=== PATIENT | female | born 1935 | race Hispanic/Latino ===

== ENCOUNTER 2022-05-19 17:28 | Inpatient (IN) | payer MEDICARE, OTHER ==
[~2022-05-19] VITALS: Ht 144.8 cm; Wt 46.8 kg
[~2022-05-19 17:28] MED LIST: DEXAMETHASONE SOD PHOS INJ 4 MG/ML SDV ONE; DEXMEDETOMIDINE HCL 200 MCG/2 ML VIAL ONE; EPHEDRINE SULFATE INJ 50 MG/ML VIAL ONE; ETOMIDATE 2 MG/ML 10 ML INJ IV ONE; GLYCOPYRROLATE INJ 0.2 MG/ML VIAL ONE; KETOROLAC TROMETHAMINE 30 MG/ML VIAL ONE; LIDOCAINE HCL 2% LOCAL INJ 5 ML SDV VIAL INJ ONE; NEOSTIGMINE 1 MG/ML 10ML VIAL ONE; ONDANSETRON HCL INJ 2MG/ML 2ML 2 MG/ML VIAL ONE; POVIDONE IODINE 0.05% 0.05 % ML PO ONE; PROPOFOL IV EMULSION 10 MG/ML 20 ML VIAL ONE; ROCURONIUM BROMIDE 10 MG/ML 5ML VIAL IV ONE; SEVOFLURANE INHAL SOLN 250 ML PEN BTL ONE; SUCCINYLCHOLINE CHLORIDE 20 MG/ML 10ML VIAL ONE
[2022-05-19] MEDS ORDERED: PROPOFOL IV EMULSION 10 MG/ML 20 ML VIAL IV STA (18:25)
[2022-05-19] MEDS ORDERED: KETAMINE HCL INJ 50 MG/ML 10 ML VIAL IV ONE (18:30)
[2022-05-19] MEDS: SODIUM CHLORIDE 0.9% 1000ML 1,000 ML IV SCH (20:01)
[2022-05-19 20:03] LABS: BASOPHILS % 0.2 % (0.0-1.0); HEMATOCRIT 39.8 % (34.2-44.1); HEMOGLOBIN 12.1 g/dL (12.0-16.0); LYMPHOCYTES # (AUTO) 0.6 (1.0-3.2); LYMPHOCYTES % 3.3 % (18.0-39.1); MEAN CORPUSCULAR HEMOGLOBIN 28.9 pg (28-32); MEAN CORPUSCULAR HGB CONC 30.4 g/dL (31-35); MEAN CORPUSCULAR VOLUME 95.2 fL (81-99); MONOCYTES # (AUTO) 0.9 (0.2-0.8); MONOCYTES % 5.3 % (4.4-11.3); NEUTROPHILS % 90.2 % (38.7-80.0); PLATELET COUNT 187 x10e3/uL (140-360); RED BLOOD COUNT 4.18 x10e6/uL (3.6-5.1); RED CELL DISTRIBUTION WIDTH 14.6 % (11.7-14.4)
[2022-05-19] MEDS ORDERED: HYDRALAZINE HCL 20 MG/ML VIAL IV PRN (20:15)
[2022-05-19 20:21] LABS: ALBUMIN 3.7 g/dL (3.5-5.0); ANION GAP 17.3 mmol/L (8-16); CALCIUM 8.6 mg/dL (8.4-10.2); CREATININE, SERUM 0.99 mg/dL (0.57-1.11); POTASSIUM 4.3 mmol/L (3.5-5.1)
[2022-05-19 20:32] LABS: CREATINE KINASE MB 2.6 ng/mL (0-5.0)
[2022-05-19] MEDS: HYDRALAZINE HCL 20 MG/ML VIAL IV PRN (20:34)
[2022-05-19 20:48] LABS: INR 0.96
[2022-05-19 20:49] LABS: PARTIAL THROMBOPLASTIN TIME 26.5 seconds (23.8-35.5)
[2022-05-19 21:40] VITALS: BP 117/59
[2022-05-19] MEDS: ONDANSETRON HCL INJ 2MG/ML 2ML 2 MG/ML VIAL IV PRN (22:42)
[2022-05-19] MEDS: Morphine 4mg INJECTION 4 MG/ML INJ IV PRN (22:42)
[2022-05-20] VITALS (10 sets, daily range): BP systolic 115–173; BP diastolic 55–90
[2022-05-20] MEDS: SODIUM CHLORIDE 0.9% 1000ML 1,000 ML IV SCH ×2 (03:30→13:46)
[2022-05-20 04:41] LABS: CREATINE KINASE MB 4.5 ng/mL (0-5.0)
[2022-05-20 05:54] LABS: BASOPHILS % 0.5 % (0.0-1.0); HEMATOCRIT 32.9 % (34.2-44.1); HEMOGLOBIN 10.5 g/dL (12.0-16.0); LYMPHOCYTES # (AUTO) 1.1 (1.0-3.2); LYMPHOCYTES % 12.3 % (18.0-39.1); MEAN CORPUSCULAR HEMOGLOBIN 28.8 pg (28-32); MEAN CORPUSCULAR HGB CONC 31.9 g/dL (31-35); MEAN CORPUSCULAR VOLUME 90.4 fL (81-99); MONOCYTES # (AUTO) 0.8 (0.2-0.8); MONOCYTES % 9.4 % (4.4-11.3); NEUTROPHILS # (AUTO) 6.8 (2.1-6.9); NEUTROPHILS % 77.2 % (38.7-80.0); PLATELET COUNT 166 x10e3/uL (140-360); RED BLOOD COUNT 3.64 x10e6/uL (3.6-5.1); RED CELL DISTRIBUTION WIDTH 14.8 % (11.7-14.4)
[2022-05-20 06:22] LABS: ALBUMIN 3.1 g/dL (3.5-5.0); ALBUMIN/GLOBULIN RATIO 0.9 (0.8-2.0); ANION GAP 14.4 mmol/L (8-16); CALCIUM 8.1 mg/dL (8.4-10.2); CREATININE, SERUM 0.86 mg/dL (0.57-1.11); POTASSIUM 4.4 mmol/L (3.5-5.1)
[2022-05-20] MEDS: ONDANSETRON HCL INJ 2MG/ML 2ML 2 MG/ML VIAL IV PRN ×2 (07:43→11:52)
[2022-05-20] MEDS: Morphine 4mg INJECTION 4 MG/ML INJ IV PRN ×2 (07:43→11:52)
[2022-05-20] MEDS ORDERED: Vancomycin IV 1 GM VIAL ONE (11:14)
[2022-05-20] MEDS ORDERED: TRANEXAMIC ACID 20 ML ONE (11:14)
[2022-05-20 11:54] LABS: CREATINE KINASE MB 3.5 ng/mL (0-5.0)
[2022-05-20] MEDS ORDERED: DEXAMETHASONE 4 MG TAB PO SCH (12:15)
[2022-05-20] MEDS ORDERED: REMDESIVIR 200MG 200 MG in SODIUM CHLORIDE 0.9% 100 ML IV ONE (13:00)
[2022-05-20] MEDS ORDERED: DEXMEDETOMIDINE HCL 2 ML ONE (15:56)
[2022-05-20] MEDS ORDERED: ROPIVACAINE 0.5% 5 MG/ML 30 ML SDV ONE (15:57)
[2022-05-20] MEDS ORDERED: FENTANYL CITRATE/PF 100MCG/2 ML INJ ONE (18:50)
[2022-05-20] MEDS ORDERED: HYDROCODONE/APAP 5MG-325MG TAB PO PRN (19:00)
[2022-05-20] MEDS: Vancomycin IV 1 GM in SODIUM CHLORIDE 0.9% 250ML 250 ML IV SCH (19:00)
[2022-05-20] MEDS ORDERED: DOCUSATE SODIUM 100 MG CAP PO PRN (19:00)
[2022-05-20] MEDS ORDERED: Morphine 4mg INJECTION 4 MG/ML INJ ONE (19:22)
[2022-05-20] MEDS: HEPARIN SOD (PORCINE) 5,000 UNIT/ML VIAL SC SCH (21:37)
[2022-05-21] VITALS (28 sets, daily range): BP systolic 67–186; BP diastolic 39–87
[2022-05-21] MEDS: Morphine 4mg INJECTION 4 MG/ML INJ IV PRN ×3 (00:18→10:47)
[2022-05-21] MEDS: ACETAMINOPHEN 1000 MG/100 ML IV SCH ×4 (00:19→17:51)
[2022-05-21] MEDS: SODIUM CHLORIDE 0.9% 1000ML 1,000 ML IV SCH ×4 (00:21→19:34)
[2022-05-21 05:55] LABS: BASOPHILS % 0.1 % (0.0-1.0); HEMATOCRIT 31.1 % (34.2-44.1); HEMOGLOBIN 9.1 g/dL (12.0-16.0); LYMPHOCYTES # (AUTO) 0.7 (1.0-3.2); LYMPHOCYTES % 6.6 % (18.0-39.1); MEAN CORPUSCULAR HEMOGLOBIN 28.6 pg (28-32); MEAN CORPUSCULAR HGB CONC 29.3 g/dL (31-35); MEAN CORPUSCULAR VOLUME 97.8 fL (81-99); MONOCYTES # (AUTO) 0.8 (0.2-0.8); MONOCYTES % 7.6 % (4.4-11.3); NEUTROPHILS # (AUTO) 8.6 (2.1-6.9); NEUTROPHILS % 85.3 % (38.7-80.0); PLATELET COUNT 181 x10e3/uL (140-360); RED BLOOD COUNT 3.18 x10e6/uL (3.6-5.1); RED CELL DISTRIBUTION WIDTH 14.9 % (11.7-14.4)
[2022-05-21 06:24] LABS: ANION GAP 17.3 mmol/L (8-16); CALCIUM 7.7 mg/dL (8.4-10.2); CREATININE, SERUM 1.08 mg/dL (0.57-1.11); POTASSIUM 4.3 mmol/L (3.5-5.1)
[2022-05-21] MEDS: Vancomycin IV 1 GM in SODIUM CHLORIDE 0.9% 250ML 250 ML IV SCH (08:11)
[2022-05-21] MEDS: ASPIRIN 81 MG ENTERIC COATED PO SCH ×2 (08:12→17:47)
[2022-05-21] MEDS: HYDRALAZINE HCL 20 MG/ML VIAL IV PRN (08:25)
[2022-05-21] MEDS: HEPARIN SOD (PORCINE) 5,000 UNIT/ML VIAL SC SCH ×3 (08:32→21:06)
[2022-05-21] MEDS ORDERED: ASPIRIN 325 MG TAB PO SCH (09:00)
[2022-05-21] MEDS ORDERED: CELECOXIB 100 MG CAP PO SCH (09:00)
[2022-05-21] MEDS: ONDANSETRON HCL INJ 2MG/ML 2ML 2 MG/ML VIAL IV PRN (10:46)
[2022-05-21] MEDS ORDERED: LISINOPRIL 2.5 MG TAB PO SCH (11:30)
[2022-05-21] MEDS ORDERED: REMDESIVIR 100MG 100 MG in SODIUM CHLORIDE 0.9% 100 ML IV SCH (14:00)
[2022-05-21] MEDS ORDERED: CELECOXIB 200 MG CAP PO SCH (17:00)
[2022-05-21] MEDS ORDERED: MIDAZOLAM HCL 2 MG/2 ML VIAL IV PRN (20:15)
[2022-05-21] MEDS: LACTATED RINGER'S 1,000 ML INJ SCH (20:35)
[2022-05-21] MEDS: DEXMEDETOMIDINE 400MCG/NS100ML 100 ML IV PRN (20:36)
[2022-05-21 20:38] LABS: ABG HCO3 21 mmol/L (22-26); ABG PCO2 41 mmHg (35-45); ABG PH 7.32 (7.35-7.45); ABG PO2 69 mmHg (80-105); ABG TCO2 22
[2022-05-21 21:28] LABS: CLARITY,URINE CLOUDY (CLEAR); COLOR,URINE YELLOW (YELLOW); LEUKOCYTE ESTERASE ,URINE SMALL (NEGATIVE)
[2022-05-21 21:29] LABS: KETONES,URINE NEGATIVE (NEGATIVE); NITRITE,URINE NEGATIVE (NEGATIVE); PROTEIN,URINE DIPSTICK 1+ (NEGATIVE); URINE UROBILINOGEN 0.2 mg/dL (0.2 - 1)
[2022-05-21 21:38] LABS: BACTERIA,URINE MODERATE /HPF; RENAL EPITHELIAL CELLS,URINE RARE; WBC,URINE (MAN) >50 /HPF (0-5)
[2022-05-21] MEDS ORDERED: NOREPINEPHRINE 8 MG/D5W 250 ML 250 ML IV PRN (21:45)
[2022-05-21] MEDS ORDERED: Morphine 4mg INJECTION 4 MG/ML INJ IV PRN (23:30)
[2022-05-22] VITALS (43 sets, daily range): BP systolic 91–160; BP diastolic 53–96
[2022-05-22] MEDS: LACTATED RINGER'S 1,000 ML INJ SCH ×2 (04:52→15:35)
[2022-05-22] MEDS: DEXMEDETOMIDINE 400MCG/NS100ML 100 ML IV PRN (04:53)
[2022-05-22 06:38] LABS: BASOPHILS % 0.7 % (0.0-1.0); EOSINOPHILS % 1.4 % (0.0-6.0); HEMATOCRIT 25.3 % (34.2-44.1); HEMOGLOBIN 7.8 g/dL (12.0-16.0); LYMPHOCYTES # (AUTO) 0.6 (1.0-3.2); LYMPHOCYTES % 18.7 % (18.0-39.1); MEAN CORPUSCULAR HEMOGLOBIN 28.9 pg (28-32); MEAN CORPUSCULAR HGB CONC 30.8 g/dL (31-35); MEAN CORPUSCULAR VOLUME 93.7 fL (81-99); MONOCYTES # (AUTO) 0.1 (0.2-0.8); MONOCYTES % 3.4 % (4.4-11.3); NEUTROPHILS # (AUTO) 2.2 (2.1-6.9); NEUTROPHILS % 75.5 % (38.7-80.0); PLATELET COUNT 143 x10e3/uL (140-360); RED CELL DISTRIBUTION WIDTH 14.6 % (11.7-14.4)
[2022-05-22 07:09] LABS: ALBUMIN 2.1 g/dL (3.5-5.0); ALBUMIN/GLOBULIN RATIO 0.8 (0.8-2.0); ANION GAP 11.7 mmol/L (8-16); CALCIUM 7.1 mg/dL (8.4-10.2); CREATININE, SERUM 0.8 mg/dL (0.57-1.11); POTASSIUM 3.7 mmol/L (3.5-5.1)
[2022-05-22 08:28] LABS: BAND NEUTROPHILS % (MANUAL) 5 %; EOSINOPHILS % (MANUAL) 1 % (0-7); LYMPHOCYTES % (MANUAL) 25 % (19-48); MONOCYTES % (MANUAL) 7 % (3.4-9.0); NEUTROPHILS % (MANUAL) 62 % (40-74); PLATELET ESTIMATE SLIGHTLY DECREASED; PLATELET MORPHOLOGY COMMENT NORMAL; RBC MORPHOLOGY COMMENT NORMAL
[2022-05-22] MEDS: ASPIRIN 81 MG ENTERIC COATED PO SCH ×2 (09:00→16:14)
[2022-05-22] MEDS: HEPARIN SOD (PORCINE) 5,000 UNIT/ML VIAL SC SCH ×2 (09:07→20:58)
[2022-05-22] MEDS ORDERED: ACETAMINOPHEN 1000 MG/100 ML IV PRN (19:45)
[2022-05-23] VITALS (43 sets, daily range): BP systolic 101–185; BP diastolic 45–113
[2022-05-23] MEDS: LACTATED RINGER'S 1,000 ML INJ SCH (02:20)
[2022-05-23 06:30] LABS: BASOPHILS % 0.1 % (0.0-1.0); EOSINOPHILS % 0.4 % (0.0-6.0); HEMOGLOBIN 6.7 g/dL (12.0-16.0); LYMPHOCYTES # (AUTO) 0.8 (1.0-3.2); LYMPHOCYTES % 9.4 % (18.0-39.1); MEAN CORPUSCULAR HEMOGLOBIN 28.6 pg (28-32); MEAN CORPUSCULAR HGB CONC 30.3 g/dL (31-35); MEAN CORPUSCULAR VOLUME 94.4 fL (81-99); MONOCYTES # (AUTO) 0.4 (0.2-0.8); MONOCYTES % 4.7 % (4.4-11.3); NEUTROPHILS # (AUTO) 6.9 (2.1-6.9); NEUTROPHILS % 83.9 % (38.7-80.0); PLATELET COUNT 152 x10e3/uL (140-360); RED BLOOD COUNT 2.34 x10e6/uL (3.6-5.1); RED CELL DISTRIBUTION WIDTH 15.1 % (11.7-14.4)
[2022-05-23 06:38] LABS: HEMATOCRIT 22.1 % (34.2-44.1)
[2022-05-23 07:00] LABS: ALBUMIN 1.9 g/dL (3.5-5.0); ALBUMIN/GLOBULIN RATIO 0.6 (0.8-2.0); ANION GAP 14.7 mmol/L (8-16); CALCIUM 7.5 mg/dL (8.4-10.2); CREATININE, SERUM 0.71 mg/dL (0.57-1.11); POTASSIUM 3.7 mmol/L (3.5-5.1)
[2022-05-23] MEDS ORDERED: POTASSIUM CHLORIDE 20MEQ/100ML 200 ML IV ONE (08:00)
[2022-05-23] MEDS: DEXMEDETOMIDINE 400MCG/NS100ML 100 ML IV PRN (08:03)
[2022-05-23] MEDS: ASPIRIN 81 MG ENTERIC COATED PO SCH (08:14)
[2022-05-23] MEDS ORDERED: SODIUM CHLORIDE 0.9% 250ML 250 ML IV ONE (08:15)
[2022-05-23] MEDS: HEPARIN SOD (PORCINE) 5,000 UNIT/ML VIAL SC SCH ×2 (08:15→21:18)
[2022-05-23 09:03] LABS: FERRITIN 103.83 ng/mL (4.63-204.00)
[2022-05-23 09:05] LABS: ABG HCO3 20 mmol/L (22-26); ABG PCO2 34 mmHg (35-45); ABG PH 7.39 (7.35-7.45); ABG PO2 108 mmHg (80-105); ABG TCO2 21
[2022-05-23] MEDS: SODIUM BICARBONATE 8.4% 50 ML in SODIUM CHLORIDE 0.45% 1,000 ML IV SCH ×2 (10:15→21:18)
[2022-05-23 11:52] LABS: BAND NEUTROPHILS % (MANUAL) 8 %; LYMPHOCYTES % (MANUAL) 11 % (19-48); MONOCYTES % (MANUAL) 2 % (3.4-9.0); NEUTROPHILS % (MANUAL) 79 % (40-74)
[2022-05-23 11:54] LABS: PLATELET ESTIMATE ADEQUATE; PLATELET MORPHOLOGY COMMENT NORMAL; RBC MORPHOLOGY COMMENT NORMAL
[2022-05-23] MEDS: HYDRALAZINE HCL 20 MG/ML VIAL IV PRN (13:26)
[2022-05-23 17:24] LABS: HEMATOCRIT 24.4 % (34.2-44.1); HEMOGLOBIN 7.6 g/dL (12.0-16.0)
[2022-05-24] VITALS (15 sets, daily range): BP systolic 107–175; BP diastolic 44–110
[2022-05-24 06:56] LABS: BASOPHILS % 0.2 % (0.0-1.0); EOSINOPHILS % 0.1 % (0.0-6.0); HEMATOCRIT 30.7 % (34.2-44.1); HEMOGLOBIN 9.4 g/dL (12.0-16.0); LYMPHOCYTES # (AUTO) 0.7 (1.0-3.2); LYMPHOCYTES % 5.8 % (18.0-39.1); MEAN CORPUSCULAR HEMOGLOBIN 29.2 pg (28-32); MEAN CORPUSCULAR HGB CONC 30.6 g/dL (31-35); MEAN CORPUSCULAR VOLUME 95.3 fL (81-99); MONOCYTES # (AUTO) 0.4 (0.2-0.8); MONOCYTES % 3.8 % (4.4-11.3); NEUTROPHILS # (AUTO) 10.3 (2.1-6.9); NEUTROPHILS % 89.6 % (38.7-80.0); PLATELET COUNT 159 x10e3/uL (140-360); RED BLOOD COUNT 3.22 x10e6/uL (3.6-5.1); RED CELL DISTRIBUTION WIDTH 14.9 % (11.7-14.4)
[2022-05-24 07:23] LABS: ALBUMIN 1.7 g/dL (3.5-5.0); ALBUMIN/GLOBULIN RATIO 0.5 (0.8-2.0); CALCIUM 7.3 mg/dL (8.4-10.2); CREATININE, SERUM 0.71 mg/dL (0.57-1.11)
[2022-05-24 07:49] LABS: BAND NEUTROPHILS % (MANUAL) 1 %; LYMPHOCYTES % (MANUAL) 3 % (19-48); MONOCYTES % (MANUAL) 3 % (3.4-9.0); NEUTROPHILS % (MANUAL) 93 % (40-74)
[2022-05-24 07:50] LABS: HYPOCHROMASIA SLIGHT; RBC MORPHOLOGY COMMENT NORMAL
[2022-05-24 07:51] LABS: PLATELET ESTIMATE ADEQUATE; PLATELET MORPHOLOGY COMMENT NORMAL
[2022-05-24] MEDS: HEPARIN SOD (PORCINE) 5,000 UNIT/ML VIAL SC SCH ×2 (08:35→20:37)
[2022-05-24] MEDS: METRONIDAZOLE 500MG/NS 100ML 100 ML IV SCH ×3 (10:35→21:20)
[2022-05-24] MEDS: SODIUM BICARBONATE 8.4% 50 ML in SODIUM CHLORIDE 0.45% 1,000 ML IV SCH (11:31)
[2022-05-24] MEDS: HYDRALAZINE HCL 20 MG/ML VIAL IV PRN ×2 (18:06→18:13)
[2022-05-24] MEDS: DEXMEDETOMIDINE 400MCG/NS100ML 100 ML IV PRN (20:14)
[2022-05-25] VITALS (20 sets, daily range): BP systolic 111–165; BP diastolic 41–68
[2022-05-25] MEDS: SODIUM BICARBONATE 8.4% 50 ML in SODIUM CHLORIDE 0.45% 1,000 ML IV SCH ×2 (01:04→14:18)
[2022-05-25] MEDS: METRONIDAZOLE 500MG/NS 100ML 100 ML IV SCH ×3 (05:33→19:40)
[2022-05-25 06:48] LABS: BASOPHILS % 0.3 % (0.0-1.0); HEMATOCRIT 27.6 % (34.2-44.1); HEMOGLOBIN 9.1 g/dL (12.0-16.0); LYMPHOCYTES # (AUTO) 0.6 (1.0-3.2); LYMPHOCYTES % 5.2 % (18.0-39.1); MEAN CORPUSCULAR HEMOGLOBIN 29.4 pg (28-32); MONOCYTES # (AUTO) 0.6 (0.2-0.8); MONOCYTES % 5.1 % (4.4-11.3); NEUTROPHILS % 88.3 % (38.7-80.0); PLATELET COUNT 173 x10e3/uL (140-360); RED CELL DISTRIBUTION WIDTH 15.1 % (11.7-14.4)
[2022-05-25 07:13] LABS: ALBUMIN 1.7 g/dL (3.5-5.0); ALBUMIN/GLOBULIN RATIO 0.5 (0.8-2.0); ANION GAP 15.6 mmol/L (8-16); CALCIUM 7.3 mg/dL (8.4-10.2); CREATININE, SERUM 0.61 mg/dL (0.57-1.11); POTASSIUM 3.6 mmol/L (3.5-5.1)
[2022-05-25] MEDS: HEPARIN SOD (PORCINE) 5,000 UNIT/ML VIAL SC SCH ×2 (08:29→21:36)
[2022-05-26] VITALS (13 sets, daily range): BP systolic 129–211; BP diastolic 53–76
[2022-05-26] MEDS: SODIUM BICARBONATE 8.4% 50 ML in SODIUM CHLORIDE 0.45% 1,000 ML IV SCH (03:10)
[2022-05-26] MEDS: METRONIDAZOLE 500MG/NS 100ML 100 ML IV SCH ×3 (04:49→22:59)
[2022-05-26 06:55] LABS: BASOPHILS % 0.2 % (0.0-1.0); EOSINOPHILS % 0.1 % (0.0-6.0); HEMATOCRIT 27.3 % (34.2-44.1); HEMOGLOBIN 8.6 g/dL (12.0-16.0); LYMPHOCYTES # (AUTO) 0.7 (1.0-3.2); LYMPHOCYTES % 7.1 % (18.0-39.1); MEAN CORPUSCULAR HEMOGLOBIN 29.2 pg (28-32); MEAN CORPUSCULAR HGB CONC 31.5 g/dL (31-35); MEAN CORPUSCULAR VOLUME 92.5 fL (81-99); MONOCYTES # (AUTO) 0.6 (0.2-0.8); MONOCYTES % 6.4 % (4.4-11.3); NEUTROPHILS # (AUTO) 7.8 (2.1-6.9); NEUTROPHILS % 84.7 % (38.7-80.0); PLATELET COUNT 193 x10e3/uL (140-360); RED BLOOD COUNT 2.95 x10e6/uL (3.6-5.1); RED CELL DISTRIBUTION WIDTH 15.3 % (11.7-14.4)
[2022-05-26 07:15] LABS: ALBUMIN 1.5 g/dL (3.5-5.0); ALBUMIN/GLOBULIN RATIO 0.5 (0.8-2.0); ANION GAP 14.4 mmol/L (8-16); CALCIUM 7.1 mg/dL (8.4-10.2); CREATININE, SERUM 0.54 mg/dL (0.57-1.11); POTASSIUM 3.4 mmol/L (3.5-5.1)
[2022-05-26] MEDS: HEPARIN SOD (PORCINE) 5,000 UNIT/ML VIAL SC SCH ×2 (08:24→21:09)
[2022-05-26] MEDS ORDERED: POTASSIUM CHLORIDE 20MEQ/100ML 200 ML IV ONE (08:30)
[2022-05-26] MEDS ORDERED: POTASSIUM CHLORIDE 10MEQ/100ML 200 ML IV ONE (08:45)
[2022-05-26] MEDS: DEXTROSE 5%/0.45% SOD CHL 1,000 ML IV SCH ×2 (09:02→19:04)
[2022-05-26] MEDS: CIPROFLOXACIN 200 MG/D5W 100ML 100 ML IV SCH ×2 (11:10→21:08)
[2022-05-26] MEDS: HYDRALAZINE HCL 20 MG/ML VIAL IV PRN ×2 (14:10→21:08)
[2022-05-27] VITALS (11 sets, daily range): BP systolic 135–195; BP diastolic 69–140
[2022-05-27] MEDS: DEXTROSE 5%/0.45% SOD CHL 1,000 ML IV SCH (05:24)
[2022-05-27] MEDS: METRONIDAZOLE 500MG/NS 100ML 100 ML IV SCH (05:24)
[2022-05-27 06:40] LABS: BASOPHILS % 0.3 % (0.0-1.0); EOSINOPHILS % 0.1 % (0.0-6.0); HEMATOCRIT 31.5 % (34.2-44.1); HEMOGLOBIN 10.2 g/dL (12.0-16.0); LYMPHOCYTES # (AUTO) 0.7 (1.0-3.2); LYMPHOCYTES % 5.7 % (18.0-39.1); MEAN CORPUSCULAR HEMOGLOBIN 29.3 pg (28-32); MEAN CORPUSCULAR HGB CONC 32.4 g/dL (31-35); MEAN CORPUSCULAR VOLUME 90.5 fL (81-99); MONOCYTES # (AUTO) 0.8 (0.2-0.8); MONOCYTES % 6.1 % (4.4-11.3); NEUTROPHILS # (AUTO) 10.8 (2.1-6.9); NEUTROPHILS % 84.4 % (38.7-80.0); PLATELET COUNT 260 x10e3/uL (140-360); RED BLOOD COUNT 3.48 x10e6/uL (3.6-5.1); RED CELL DISTRIBUTION WIDTH 15.2 % (11.7-14.4)
[2022-05-27 07:09] LABS: ALBUMIN 1.7 g/dL (3.5-5.0); ALBUMIN/GLOBULIN RATIO 0.5 (0.8-2.0); ANION GAP 13.9 mmol/L (8-16); CALCIUM 7.7 mg/dL (8.4-10.2); CREATININE, SERUM 0.58 mg/dL (0.57-1.11)
[2022-05-27 07:14] LABS: POTASSIUM 2.9 mmol/L (3.5-5.1)
[2022-05-27] MEDS: BALSAM PERU/CASTOR OIL 60 GM OINT...G. TP SCH (09:00)
[2022-05-27] MEDS: HEPARIN SOD (PORCINE) 5,000 UNIT/ML VIAL SC SCH (09:00)
[2022-05-27] MEDS ORDERED: FUROSEMIDE INJ 10 MG/ML 4 ML VIAL IV ONE (09:45)
[2022-05-27] MEDS: POTASSIUM CHLORIDE 20MEQ/100ML 100 ML IV SCH ×3 (11:15→15:14)
[2022-05-27] MEDS: CIPROFLOXACIN 200 MG/D5W 100ML 100 ML IV SCH ×2 (11:16→21:13)
[2022-05-27] MEDS: FUROSEMIDE INJ 10 MG/ML 4 ML VIAL IV SCH (21:13)
[2022-05-28] VITALS (10 sets, daily range): BP systolic 108–150; BP diastolic 56–103
[2022-05-28 06:04] LABS: BASOPHILS % 0.4 % (0.0-1.0); EOSINOPHILS % 0.2 % (0.0-6.0); HEMATOCRIT 29.1 % (34.2-44.1); HEMOGLOBIN 9.9 g/dL (12.0-16.0); LYMPHOCYTES # (AUTO) 0.8 (1.0-3.2); MEAN CORPUSCULAR HEMOGLOBIN 29.5 pg (28-32); MEAN CORPUSCULAR VOLUME 86.6 fL (81-99); MONOCYTES # (AUTO) 0.6 (0.2-0.8); MONOCYTES % 6.4 % (4.4-11.3); NEUTROPHILS # (AUTO) 7.9 (2.1-6.9); NEUTROPHILS % 82.3 % (38.7-80.0); PLATELET COUNT 259 x10e3/uL (140-360); RED BLOOD COUNT 3.36 x10e6/uL (3.6-5.1); RED CELL DISTRIBUTION WIDTH 15.3 % (11.7-14.4)
[2022-05-28] MEDS: HYDRALAZINE HCL 20 MG/ML VIAL IV PRN (06:08)
[2022-05-28 06:36] LABS: ALBUMIN 1.7 g/dL (3.5-5.0); ALBUMIN/GLOBULIN RATIO 0.5 (0.8-2.0); CALCIUM 7.5 mg/dL (8.4-10.2); CREATININE, SERUM 0.57 mg/dL (0.57-1.11)
[2022-05-28] MEDS: FUROSEMIDE INJ 10 MG/ML 4 ML VIAL IV SCH ×2 (08:36→21:56)
[2022-05-28] MEDS: CIPROFLOXACIN 200 MG/D5W 100ML 100 ML IV SCH (08:37)
[2022-05-28] MEDS: POTASSIUM CHLORIDE 20MEQ/100ML 100 ML IV SCH ×2 (08:42→12:20)
[2022-05-28] MEDS: BALSAM PERU/CASTOR OIL 60 GM OINT...G. TP SCH (09:00)
[2022-05-29] VITALS (12 sets, daily range): BP systolic 107–161; BP diastolic 61–87
[2022-05-29] MEDS ORDERED: Morphine 2mg Syringe 2 MG/ML SYR IV PRN (04:15)
[2022-05-29 06:29] LABS: BASOPHILS # (AUTO) 0.1 (0.0-0.1); BASOPHILS % 0.4 % (0.0-1.0); EOSINOPHILS # (AUTO) 0.1 (0.0-0.4); EOSINOPHILS % 0.4 % (0.0-6.0); HEMATOCRIT 29.4 % (34.2-44.1); HEMOGLOBIN 9.4 g/dL (12.0-16.0); LYMPHOCYTES # (AUTO) 0.7 (1.0-3.2); LYMPHOCYTES % 6.4 % (18.0-39.1); MEAN CORPUSCULAR HEMOGLOBIN 28.7 pg (28-32); MEAN CORPUSCULAR VOLUME 89.6 fL (81-99); MONOCYTES # (AUTO) 0.6 (0.2-0.8); NEUTROPHILS # (AUTO) 9.7 (2.1-6.9); NEUTROPHILS % 86.2 % (38.7-80.0); PLATELET COUNT 295 x10e3/uL (140-360); RED BLOOD COUNT 3.28 x10e6/uL (3.6-5.1)
[2022-05-29 06:52] LABS: ALBUMIN 1.7 g/dL (3.5-5.0); ALBUMIN/GLOBULIN RATIO 0.5 (0.8-2.0); ANION GAP 15.5 mmol/L (8-16); CALCIUM 7.5 mg/dL (8.4-10.2); CREATININE, SERUM 0.63 mg/dL (0.57-1.11); POTASSIUM 3.5 mmol/L (3.5-5.1)
[2022-05-29] MEDS ORDERED: POTASSIUM CHLORIDE 10MEQ/100ML 200 ML IV ONE (08:30)
[2022-05-29] MEDS: FUROSEMIDE INJ 10 MG/ML 4 ML VIAL IV SCH ×2 (09:58→21:12)
[2022-05-29] MEDS: BALSAM PERU/CASTOR OIL 60 GM OINT...G. TP SCH (09:59)
[2022-05-30 03:00] VITALS: BP 147/67
[2022-05-30 07:00] VITALS: BP 156/71
[2022-05-30 08:00] VITALS: BP 130/69
[2022-05-30] MEDS: FUROSEMIDE INJ 10 MG/ML 4 ML VIAL IV SCH (08:01)
[2022-05-30 09:00] VITALS: BP_SYST 129; BP_SYST 130; BP_DIAS 64; BP_DIAS 69
[2022-05-30] MEDS: BALSAM PERU/CASTOR OIL 60 GM OINT...G. TP SCH (09:00)
[2022-05-30 10:00] VITALS: BP 127/66
[2022-05-30 11:00] VITALS: BP 135/73
== END 2022-05-30 12:33 | disposition hospice, inpatient (51) | DRG 483 ==
LOC: ER 17:36 → ERHOLD 19:26 → MED/SURG3 21:50 → ICU 05-21 19:09
PROVIDERS: ADMIT Internal Medicine; ATTEND Internal Medicine
PROC: 8E0ZXY6 Isolation (ICD-10-PCS; 2022-05-19)
PROC: 3E033XZ Introduction of Vasopressor into Peripheral Vein, Percutaneous Approach (ICD-10-PCS; 2022-05-19)
PROC: 0RRK00Z Replacement of Left Shoulder Joint with Reverse Ball and Socket Synthetic Substitute, Open Approach (ICD-10-PCS; 2022-05-20)
PROC: 0LN40ZZ Release Left Upper Arm Tendon, Open Approach (ICD-10-PCS; 2022-05-20)
PROC: 0DH68UZ Insertion of Feeding Device into Stomach, Via Natural or Artificial Opening Endoscopic (ICD-10-PCS; 2022-05-20)
PROC: 3E04329 Introduction of Other Anti-infective into Central Vein, Percutaneous Approach (ICD-10-PCS; 2022-05-20)
PROC: XW043E5 Introduction of Remdesivir Anti-infective into Central Vein, Percutaneous Approach, New Technology Group 5 (ICD-10-PCS; 2022-05-20)
PROC: 5A12012 Performance of Cardiac Output, Single, Manual (ICD-10-PCS; 2022-05-21)
PROC: 0BH17EZ Insertion of Endotracheal Airway into Trachea, Via Natural or Artificial Opening (ICD-10-PCS; 2022-05-21)
PROC: 5A1935Z Respiratory Ventilation, Less than 24 Consecutive Hours (ICD-10-PCS; 2022-05-21)
PROC: 02HV33Z Insertion of Infusion Device into Superior Vena Cava, Percutaneous Approach (ICD-10-PCS; 2022-05-21)
PROC: 30243N1 Transfusion of Nonautologous Red Blood Cells into Central Vein, Percutaneous Approach (ICD-10-PCS; 2022-05-23)
PROC: 0DH68UZ Insertion of Feeding Device into Stomach, Via Natural or Artificial Opening Endoscopic (ICD-10-PCS; principal; 2022-05-28)
DX: S42.202A Unspecified fracture of upper end of left humerus, initial encounter for closed fracture (principal); A41.50 Gram-negative sepsis, unspecified; R65.20 Severe sepsis without septic shock; I50.33 Acute on chronic diastolic (congestive) heart failure; E43 Unspecified severe protein-calorie malnutrition; U07.1 COVID-19; G93.41 Metabolic encephalopathy; J96.01 Acute respiratory failure with hypoxia; J15.6 Pneumonia due to other Gram-negative bacteria; N39.0 Urinary tract infection, site not specified; D62 Acute posthemorrhagic anemia; Z43.1 Encounter for attention to gastrostomy; I11.0 Hypertensive heart disease with heart failure; Z68.22 Body mass index [BMI] 22.0-22.9, adult; D50.9 Iron deficiency anemia, unspecified; D63.8 Anemia in other chronic diseases classified elsewhere; R62.7 Adult failure to thrive; Z66 Do not resuscitate; Z51.5 Encounter for palliative care; W19.XXXA Unspecified fall, initial encounter; Z91.81 History of falling; Y92.009 Unspecified place in unspecified non-institutional (private) residence as the place of occurrence of the external cause; M81.0 Age-related osteoporosis without current pathological fracture
CPT/HCPCS: 31500; 36415; 36569; 36600; 49441; 71045; 74018; 74230; 74470; 80048; 80053; 81001; 82550; 82553; 82607; 82728; 82805; 83540; 83605; 83880; 84466; 84484; 85014; 85018; 85025; 85045; 85610; 85730; 86850; 86900; 86920; 87040; 87070; 87086; 87186; 87205; 92950; 93005; 93306; 93971; 94003; 94799; 96361; 99252; 99284; C1713; C1776; J0248; J0330; J0360; J0692; J0696; J1100; J1644; J1885; J1940; J2001; J2250; J2270; J2405; J2543; J2710; J2795; J3010; J3370; J3480; J7030; J7050; J7121; P9016